=== PATIENT | male | born 1970 | race Caucasian/White ===

== ENCOUNTER 2023-08-14 01:22 | Emergency (ER) | payer OTHER, SELFPAY ==
[2023-08-14] VITALS (18 sets, daily range): BP systolic 115–161; BP diastolic 82–104; PULSE 106–123; RESP 18–22; TEMP 36.2; O2SAT 90–99
--- NOTE | ~2023-08-14 | CT_ITS ---
EXAMINATION: CT brain wo con DATE: 08/14/2023 02:13 INDICATION: Right hemiparesis. Transient ischemic attack. TECHNIQUE: Computed tomography (CT) of the head was performed without intravenous contrast. The mA wa s adjusted according to patient size. Iterative reconstruction technique was employed. The dose-lengt h product was 605.33 mGy-cm. COMPARISON: None FINDINGS: There is no intracranial hemorrhage, acute infarction, or abnormal intracranial mass lesion . The ventricles are normal in size. The orbits are normal. The paranasal sinuses are clear. The mast oid air cells are normal. IMPRESSION: 1. Normal brain. Reviewed, dictated and finalized at location A. RANCE AGENT IMPRESSION: 1. Normal brain.
--- NOTE | 2023-08-14 01:37 | ECG_ITS ---
Measurements Intervals [place] Rate: 112 P: 33 TX: 148 QRS: 53 QRSD: 89 T: 3 QT: 305 QTc: 416 Interpretive Statements SINUS TACHYCARDIA MINIMAL Q WAVES- INFERIOR LEADS BASELINE ARTIFACT- I, II, III, AVR, AVL ABNORMAL ECG NO PREVIOUS ECG AVAILABLE FOR COMPARISON Electronically Signed On 08-14-2023 7:06:48 CELERY CUTTER by Seun Donohue D.O.
[2023-08-14 01:53] LABS: Basophils Absolute Auto 0.03 K/mm3 (0.00-0.10); Basophils Percent Auto 0.3 % (0.0-1.0); Eosinophils Absolute Auto 0.27 K/mm3 (0.02-0.50); Hematocrit 44.9 % (40.0-54.0); Hemoglobin 15.8 g/dL (14.0-18.0); Immature Granulocyte Absolute 0.04 K/mm3 (0.00-0.00); Immature Granulocyte Percent A 0.4 % (0.0-0.0); Lymphocytes Absolute Auto 2.08 K/mm3 (1.10-4.50); Lymphocytes Percent Auto 22.9 % (18.0-42.0); Mean Corpuscular HGB Conc 35.2 g/dL (32.0-36.0); Mean Corpuscular Hemoglobin 30.6 pg (27.0-31.0); Mean Corpuscular Volume 86.8 fL (78.0-102.0); Mean Platelet Volume 11.2 fl (8.7-11.0); Monocytes Absolute Auto 0.64 K/mm3 (0.10-0.90); Neutrophils Percent Auto 66.4 % (50.0-70.0); Platelet Count Result 222 K/mm3 (150-420); Red Blood Count 5.17 M/mm3 (4.70-6.10); Red Cell Distribution Width 11.9 % (11.6-14.4); White Blood Count 9.1 K/mm3 (4.8-10.8)
[2023-08-14] MEDS: ASPIRIN 81 MG CHEWABLE TABLET 324 MG PO (01:54)
--- NOTE | 2023-08-14 02:00 | PC.NURSE ---
asa admin, ekg completed, pt currently using urinal then will go to ct, will start iv and admin iv med when pt returns
--- NOTE | 2023-08-14 02:02 | ED.NEUROSD ---
HPI - Neuro Symptoms/Deficit General Chief Complaint: Extremity Problem,Nontraumatic Stated Complaint: weakness Time Seen by Provider: 08/14/23 01:34 Source: patient Mode of arrival: ambulatory Limitations: no limitations History of Present Illness HPI Narrative: Patient is a 52-year-old male with a significant past medical history that presents today possible TIA symptoms his both seizure symptoms the patient has a in the store hours ago he started the shakiness right side of his body. He did not lose consciousness he did not any of the symptoms he states that he 20 get along well this was shaking and he will also need to do so because of weakness and he fell to the ground. He denied he said when he fell. He was unable to walk for some and continue had weakness and shaking his legs. He has never had a feeling this Pap in the past he has never had any seizures in the past. He has an apparent stroke in the past either. He is a 40 pack-year smoker. He still continues to smoke. Right now the symptoms have resolved however and he does not have weakness on either side and shaking has gone as well. He still very anxious and says that he has to take Ativan 2 mg a day for last 20 years and recently a week ago stopped the Ativan and then took quarter of 1 here and there he states. Onset (ago): hour(s) Time: 21:00 Last Observed Normal: 21:00 Timing confirmed by: other Location: right arm and right leg History of same: Yes Severity: mild Quality: weak and improving Relieving factors: none Exacerbating factors: none Context: sudden onset On Anticoagulants: No Treatments Prior to Arrival: none Related Data Home Medications Medication Instructions Recorded Confirmed lisinopril 10 mg tablet (Zestril) 10 mg PO DAILY 08/14/23 08/14/23 lorazepam 1 mg tablet 1 mg PO BID 08/14/23 08/14/23 Allergies Allergy/AdvReac Type Severity Reaction Status Date / Time No Known Allergies Allergy Verified 08/14/23 19:07 Review of Systems Review of Systems: All systems reviewed & are unremarkable except as noted in HPI and below Constitutional: Constitutional: Reports no additional constitutional complaints Eyes: Eyes: Reports no additional eye complaints ENT: Reports system reviewed and no additional complaints, except as documented Cardiovascular: Cardiovascular: Reports no additional cardiovascular complaints Respiratory: Respiratory: Reports no additional respiratory complaints Gastrointestinal: Gastrointestinal: Reports no additional gastrointestinal complaints Musculoskeletal: Musculoskeletal: Reports as per HPI Integumentary/Breasts: Skin/Breast: Reports as per HPI Neurologic: Reports as per HPI Psychiatric: Psychiatric: Reports anxiety Endocrine: Endocrine: Reports no additional endocrine complaints Hematologic/Lymphatic: Hematologic/Lymphatic: Reports no additional hematologic/lymphatic complaints Allergic/Immunologic: Allergic/Immunologic: Reports no additional allergic/immunologic complaints PMFSH Past Medical History Medical History (Updated 08/17/23 @ 10:16 by Leonid Plata MD) Anxiety Eczema Essential hypertension Psoriasis Surgical History Surgical History (Updated 08/14/23 @ 07:46 by Callie Ruiz DO) No significant past surgical history Family History Family History Other Unknown family medical history Social History Social History (Updated 08/14/23 @ 07:47 by Callie Ruiz DO) Social History: Patient lives at home with his mother and 11-year-old son. He has smoked pack tobacco daily since he was a teenager. He drinks at least a moderate amount of alcohol. He reports smoking methamphetamines since summer 2022. Smoking packs per day: 1 Smoking cigarettes per day: 20.0 Years smoked: 35 Smoking pack-years: 35.00 Smoking status: Current some day smoker Tobacco type: cigarettes Alcohol intake: current Drin
[2023-08-14 02:09] LABS: Appearance Urine Clear (Clear); Bilirubin Urine Negative (Negative); Blood Urine Negative (Negative); Color Urine Light Yellow (Yellow); Glucose Urine UA 3+ (Negative); Ketones Urine Negative (Negative); Leukocyte Esterase Ur Negative LEU/UL (Negative); Nitrate Urine Negative (Negative); Protein Urine Negative (Negative); Specific Grav Ur <= 1.005 (1.010-1.020); Urobilinogen Urine 0.2 mg/dL (0.2-1.0); pH Urine 6.5 (5.0-8.0)
[2023-08-14 02:12] LABS: INR 0.9
[2023-08-14 02:13] LABS: Add Urine Microscopic? YES; Bacteria Urine Trace /hpf; RBC Urine 0-2 /hpf (0-2); WBC Urine 0-3 /hpf (0-3)
[2023-08-14 02:14] LABS: Partial Thromboplastin Time 27.7 SEC (23.90-30.70)
[2023-08-14 02:15] LABS: Alanine Aminotransferase 49 U/L (16-63); Albumin Level 3.4 g/dL (3.4-5.0); Alkaline Phosphatase 166 U/L (46-116); Anion Gap 9 mmol/L (8-16); Aspartate Amino Transferase 17 U/L (15-37); Bilirubin,Total 0.3 mg/dL (0.00-1.00); Blood Urea Nitrogen 17 mg/dL (7-18); Calcium 8.5 mg/dL (8.5-10.1); Carbon Dioxide 27 mmol/L (21-32); Chloride 88 mmol/L (98-108); Estimated CRCL calculation 81 ml/min; Estimated Glomerular Filt Rate > 60; Potassium 4.6 mmol/L (3.5-5.1); Sodium 124 mmol/L (136-145); Total Protein 6.9 g/dL (6.4-8.2)
[2023-08-14 02:15] LABS: Amphetamine Screen Urine Positive (Negative); Barbiturate Screen Urine Negative (Negative); Benzodiazepines Screen Urine Negative (Negative); Cannabinoid Screen Urine Negative (Negative); Cocaine Screen Urine Negative (Negative); Methadone Screen Urine Negative (Negative); Opiate Screen Urine Negative (Negative); Phencyclidine Screen Urine Negative (Negative)
[2023-08-14] MEDS: LORazepam INJ (*CRX) 2 MG/ML VIAL IV PUSH (02:18)
[2023-08-14 02:24] LABS: Osmolality Calculated 298 mOsm/kg (285-295)
[2023-08-14 02:25] LABS: Glucose > 800 mg/dL (70-99); Lactate Dehydrogenase 143 U/L (85-227)
[2023-08-14 02:26] LABS: Ethanol < 3 mg/dL (0-6); Troponin I 8.6 ng/L (0.00-60.4)
[2023-08-14 02:42] LABS: Hemoglobin A1C > 13.7 % (<5.7)
[2023-08-14] MEDS: INSULIN REG 100 UNITS/100 ML 100 UNITS/100 ML BAG 8.5 UNITS IV CONT (02:47)
--- NOTE | 2023-08-14 03:48 | PC.NURSE ---
pt resting with eyes closed, awakens briefly to verbal, denying c/, pt bending r ue periodically, insulin infusing but requiring to be frequently restarted, will recheck blood sugar when initial 8.5 units insulin infused, side rails up x 2, call light within reach, pt in nad, awaiting call back from [facility] with admit bed
[2023-08-14] MEDS: SODIUM CHLORIDE 0.9% IV 1,000 ML 999 ML IV CONT (04:20)
[2023-08-14 04:37] LABS: Glucose Point of Care > 450 mg/dl (65-105)
--- NOTE | 2023-08-14 04:47 | PC.NURSE ---
spoke with Surekha @ ~0400, Dr Plata spoke to admitting @ [facility] @ ~0402
[2023-08-14 05:34] LABS: Glucose Point of Care > 450 mg/dl (65-105)
[2023-08-14 06:32] LABS: Glucose Point of Care 294 mg/dl (65-105)
== END 2023-08-14 05:35 | disposition short-term general hospital (02) ==
PROVIDERS: Emergency Provider Family Medicine; PCP Family Medicine
DX: G45.9 Transient cerebral ischemic attack, unspecified (principal); F41.9 Anxiety disorder, unspecified; I10 Essential (primary) hypertension; F17.210 Nicotine dependence, cigarettes, uncomplicated; F15.90 Other stimulant use, unspecified, uncomplicated; Z79.4 Long term (current) use of insulin; Z79.84 Long term (current) use of oral hypoglycemic drugs
CPT/HCPCS: 36415; 70450; 80053; 80307; 81001; 82948; 83036; 83615; 84484; 85025; 85610; 85730; 93005; 96361; 96365; 96366; 96375; 99285; A9270; J1815; J2060; J7030

== ENCOUNTER 2023-08-14 09:23 | Observation (INO) | payer OTHER, SELFPAY ==
[2023-08-14] VITALS (9 sets, daily range): BP systolic 98–129; BP diastolic 65–95; PULSE 90–113; RESP 15–20; TEMP 36.5–36.8; O2SAT 94–99; BMI 24.5
--- NOTE | 2023-08-14 06:15 | PC.NURSE ---
This patient, Devon Olvera, was admitted to Intensive Care Unit-7. Patient/family oriented to hospital policies and general routines including ID bracelet, bed and alarms, visiting hours, pain management, procedures, bathroom and other care routines, personal items, smoking policy, room service/diet, and visiting hours. Information on how to activate the Rapid Response Team has been discussed. Patient/Family are encouraged to report perceived risks to care and to ask questions if they do not understand what they are told or what they should do.
[2023-08-14] MEDS: SODIUM CHLORIDE 0.9% IV 1,000 ML 999 ML IV CONT ×2 (06:49→08:26)
--- NOTE | 2023-08-14 07:38 | PM.IMHP ---
H&P: HPI History of Present Illness Date/Time: 08/14/23 06:30 Chief Complaint: Muscles shaking Narrative: 52-year-old male with past medical history of methamphetamine abuse, essential hypertension, anxiety and tobacco use who presented to the ER at [facility] via private vehicle due to muscles twitching and shaking. The patient no had reportedly been having some shaking in the muscles of the right side of his body. Patient did not have any loss of consciousness or witnessed seizures. He did in the falling to the ground. He was able to get up and walk afterwards. He reports generally feeling weak. When he arrived to [facility] was found to have glucoses greater than 800. The patient denied history of diabetes. The patient did not initially received fluids but was placed on an insulin drip at the outside facility. Labs were consistent with hyperosmolar hyperglycemic state. The patient does admit to having some polydipsia and polyphagia for the last 3 weeks. He has also been having polyuria. He denies any dysuria. He occasionally has sensation of incomplete bladder emptying. He denies hematuria or changes in bowel habits. He reports that he was having a yeast infection in his mouth. He mentions that he thought he had thrush but I was unable to get more details from him as the patient continued to fall asleep during my evaluation. The patient had received 2 mg of benzodiazepines at the outside hospital. The patient had told the outside ER that he had been taking 2 mg of Ativan a day for 20 years and stopped it 1 week ago. However patient actually has not had Ativan prescribed since May. He states he has been getting Ativan from his aunt and is only been taking it on occasion. The patient's urine drug screen happened also be positive for methamphetamines. The patient does admit to smoking methamphetamines but insists that he only started smoking meth 4 months ago. He also does drink alcohol at least 3 alcoholic beverages sometimes daily but reports he will also not drink for a week or so. Review of Systems Review of Systems: Review of systems limited as the patient was somnolent had to be woke up multiple times during evaluation. [facility] Past Medical History Medical History (Updated 08/14/23 @ 17:43 by Oliver Sevilla MD) Anxiety Eczema Essential hypertension Psoriasis Surgical History Surgical History (Updated 08/14/23 @ 07:46 by Callie Ruiz DO) No significant past surgical history Family History Family History Other Unknown family medical history Social History Social History (Updated 08/14/23 @ 07:47 by Callie Ruiz DO) Social History: Patient lives at home with his mother and 11-year-old son. He has smoked pack tobacco daily since he was a teenager. He drinks at least a moderate amount of alcohol. He reports smoking methamphetamines since summer 2022. Smoking packs per day: 1 Smoking cigarettes per day: 20.0 Years smoked: 35 Smoking pack-years: 35.00 Smoking status: Current some day smoker Tobacco type: cigarettes Alcohol intake: current Drinks per week: 40 Substance use: current Substance use type: methamphetamine Last use: 08/12/23 Spiritual care concerns: No Meds Home Medications and Allergies Home Medications Medication Instructions Recorded Confirmed Type lisinopril 10 mg tablet (Zestril) 10 mg PO DAILY 08/14/23 08/14/23 History lorazepam 1 mg tablet 1 mg PO BID 08/14/23 08/14/23 History Allergies Allergy/AdvReac Type Severity Reaction Status Date / Time No Known Allergies Allergy Verified 08/14/23 19:07 Vital Signs Vital Signs - 24 hr 08/14/23 06:15 Pulse Rate 106 H Respiratory Rate 19 Blood Pressure 129/84 Pulse Oximetry 94 Exam Narrative: Weight 79.7 kg BMI 24.5 Const: Other: Disheveled, well-developed well-nourished HENMT: Other: Norm
[2023-08-14 07:51] LABS: Anion Gap 8 mmol/L (8-16); Blood Urea Nitrogen 12 mg/dL (9-20); Calcium 8.9 mg/dL (8.4-10.2); Carbon Dioxide 24 mmol/L (22-30); Chloride 104 mmol/L (98-107); Estimated CRCL calculation 189 ml/min; Estimated Glomerular Filt Rate > 60; Glucose 284 mg/dL (65-110); Magnesium 1.8 mg/dL (1.6-2.3); Phosphorus 4.1 mg/dL (2.5-4.5); Potassium 3.9 mmol/L (3.4-5.0); Sodium 136 mmol/L (137-145)
[2023-08-14 07:52] LABS: Glucose Point of Care 291 mg/dl (65-105)
--- NOTE | 2023-08-14 08:22 | WPDCNINT ---
Assessment and Plan Assessment and plan (1) Hyperosmolar hyperglycemic state (HHS): Code(s): E11.00 - Type 2 diabetes mellitus with hyperosmolarity without nonketotic hyperglycemic-hyperosmolar coma (NKHHC) Status: Acute Assessment and Plan: Patient presented to the outside hospital with shaking of his right side, weakness. He also complained of polyuria, polyphagia and polydipsia for the last 3 weeks -blood sugars at the outside hospital were > 800 -no anion gap, no metabolic acidosis -diagnosed with hyperosmolar hyperglycemic state -received 2 L of IV fluid bolus upon arrival to the ICU at [facility] as he was not given any IV fluids at the outside hospital -I have asked the bedside RN to give another NS 1000 mL of IV fluid bolus -repeat labs noted, will start Lantus and sliding scale insulin with Accu-Cheks -hemoglobin A1c is >13.7 this admission -start diabetic diet -will have dietitian and paraeducator evaluate the patient (2) Diabetes mellitus, new onset: Code(s): E11.9 - Type 2 diabetes mellitus without complications Status: Acute Assessment and Plan: New onset diabetes, hemoglobin A1c is above -continue treatment as above (3) Acute metabolic encephalopathy: Code(s): G93.41 - Metabolic encephalopathy Status: Acute Assessment and Plan: Acute metabolic encephalopathy likely related to hyperglycemia, also patient received Ativan 2 mg IV x1 at the outside hospital prior to being transferred to the ICU at [facility] -patient does wake up to name, follows simple commands and answers to questions appropriately -will continue to monitor (4) Benzodiazepine dependence: Code(s): F13.20 - Sedative, hypnotic or anxiolytic dependence, uncomplicated Status: Acute Assessment and Plan: Patient with benzodiazepine dependence, according the records patient has been dependent on it for 20 years but stopped 1 week ago. He has not had his Ativan prescribe since May of 2023. He stated that he has been getting Ativan from his aunt and has been taking it occasionally. (5) Oral thrush: Code(s): B37.0 - Candidal stomatitis Status: Acute Assessment and Plan: Patient with oral thrush, could be related to uncontrolled diabetes -will order nystatin swish and swallow (6) Continuous tobacco abuse: Code(s): Z72.0 - Tobacco use Status: Acute Assessment and Plan: Patient with history of tobacco abuse, will university counselor on cessation of smoking, once he is more awake (7) Methamphetamine abuse: Code(s): F15.10 - Other stimulant abuse, uncomplicated Status: Acute Assessment and Plan: Methamphetamine use, counseled on cessation of methamphetamine use once he is more awake Plan DVT prophylaxis: Enoxaparin Stress ulcer prophylaxis: Not indicated Nutrition: Diabetic diet Code Status: Full code Critical Care Time Spent: 46 minutes Due to a high probability of clinically significant, life threatening deterioration, the patient required my highest level of preparedness to intervene emergently and I personally spent this critical care time directly and personally managing the patient. This critical care time included obtaining a history; examining the patient; pulse oximetry; ordering and review of studies; arranging urgent treatment with development of a management plan; evaluation of patient's response to treatment; frequent reassessment; and discussions with other providers. It was exclusive of separately billable procedures and treating other patients and teaching time. Please see Assessment and Plan section and the rest of the note for further information on patient assessment and treatment This dictation may have been done utilizing a voice recognition system. Attempts have been made to correct errors. However, there may be uncorrected grammatical, spelling, and recognitions errors present. [employer] Consult N
[2023-08-14] MEDS: NYSTATIN 100,000 UNITS/ML SUSP 5 ML ORAL.SUSP PO ×4 (08:30→22:05)
[2023-08-14] MEDS: lisinopriL 10 MG TABLET PO (08:31)
[2023-08-14 08:39] LABS: Glucose Point of Care 394 mg/dl (65-105)
[2023-08-14] MEDS: INSULIN GLARGINE (*BKC) 100 UNITS/ML 14 UNITS SUB-Q (08:40)
[2023-08-14] MEDS: ENOXAPARIN 40 MG/0.4 ML SYRINGE SUB-Q (09:38)
[2023-08-14] MEDS: INSULIN ASPART (*BKC) 100 UNITS/ML SUB-Q ×5 (09:38→22:06)
[2023-08-14] MEDS: NICOTINE (*PBKC) 21 MG PATCH 1 PATCH TRANSDERM (09:38)
[2023-08-14 09:45] LABS: Glucose Point of Care 355 mg/dl (65-105)
[2023-08-14 10:52] LABS: Glucose Point of Care 304 mg/dl (65-105)
[2023-08-14] MEDS: INSULIN HUMAN REGULAR (*BKC) 100 UNITS/ML IV PUSH (11:04)
[2023-08-14] MEDS: INSULIN GLARGINE (*BKC) 100 UNITS/ML 6 UNITS SUB-Q (11:04)
[2023-08-14] MEDS: LACTATED RINGERS 1,000 ML 999 ML IV CONT (11:04)
[2023-08-14 12:29] LABS: Glucose Point of Care 351 mg/dl (65-105)
--- NOTE | 2023-08-14 12:56 | PM.IMPN ---
Progress Note: A&P Assessment and Plan (1) Hyperosmolar hyperglycemic state (HHS): Code(s): E11.00 - Type 2 diabetes mellitus with hyperosmolarity without nonketotic hyperglycemic-hyperosmolar coma (NKHHC) Status: Acute Assessment and Plan: Patient presented to the outside hospital with shaking of his right side, weakness. He also complained of polyuria, polyphagia and polydipsia for the last 3 weeks -blood sugars at the outside hospital were > 800 -no anion gap, no metabolic acidosis -diagnosed with hyperosmolar hyperglycemic state -he was fluid resuscitated. -he was started on Lantus and sliding scale insulin with Accu-Cheks -diabetic diet -will have dietitian and early childhood educator aide evaluate the patient (2) Diabetes mellitus, new onset: Code(s): E11.9 - Type 2 diabetes mellitus without complications Status: Acute Assessment and Plan: New onset diabetes. A1c >13.7. As above (3) Acute metabolic encephalopathy: Code(s): G93.41 - Metabolic encephalopathy Status: Acute Assessment and Plan: Acute metabolic encephalopathy related to the hyperosmolar hyperglycemic states and he also received Ativan 2 mg IV x1 at the outside hospital -patient awake and alert now. -resolved (4) Benzodiazepine dependence: Code(s): F13.20 - Sedative, hypnotic or anxiolytic dependence, uncomplicated Status: Acute Assessment and Plan: Patient with hx of benzodiazepine dependence for about 20 years. He stopped 1 week ago. -he has been out of his Ativan since May of 2023. -he has been using his aunt's Xanax to get through until he can see his doctor. -UDS however was negative for benzos. -mental status better. will order prn Ativan (5) Oral thrush: Code(s): B37.0 - Candidal stomatitis Status: Acute Assessment and Plan: Patient with oral thrush felt related to uncontrolled diabetes -he denies risk factors for HIV and declines testing -continue nystatin swish and swallow (6) Continuous tobacco abuse: Code(s): Z72.0 - Tobacco use Status: Acute Assessment and Plan: Patient was counseled on benefits of smoking cessation (7) Methamphetamine abuse: Code(s): F15.10 - Other stimulant abuse, uncomplicated Status: Acute Assessment and Plan: UDS was positive for Methamphetamine which he admits to. Patient was counseled on benefits of abstaining from meth use (8) Essential hypertension: Code(s): I10 - Essential (primary) hypertension Status: Acute Assessment and Plan: Patient's blood pressure was reviewed on 08/14 Blood pressure remains well controlled. Will continue current medications. Plan DVT prophylaxis: Enoxaparin Stress ulcer prophylaxis: Not indicated Nutrition: Diabetic diet Code Status: Full code Subjective Date/time seen: 08/14/23 12:56 Interval history: 52yo male with HTN, meth abuse, anxiety and tobacco abuse transferred from outside hospital for seizure like activity. He is feeling better. He did not lose consciousness when he had the shaking episode but just his legs wee shaking. No family hx of DM. He feels tired. Lives with his mom Exam Narrative: AF 97.7 122/84 104 18 96% ra Gen - NARD Chest - CTA bilaterally, nml RR CV - RRR S1/S2 Abd - Soft, NT/ND, Positive BS Ext - No pedal edema Neuro - Alert and oriented x4. Nonfocal exam. Psych - Nml mood and affect. disheveled appearing Skin - Warm and dry Objective Data Vital Signs Vital Signs: Vital Signs - 24 hr 08/14/23 06:15 08/14/23 08:00 08/14/23 10:00 Temperature 97.7 F Pulse Rate 106 H 90 104 H Respiratory Rate 19 15 18 Blood Pressure 129/84 128/95 H 122/84 Pulse Oximetry 94 99 96 Intake/Output Intake/Output: Intake & Output 08/11/23 08/12/23 08/13/23 08/14/23 23:59 23:59 23:59 23:59 Intake Total 236 Balance 236 Meds/Results
[2023-08-14 13:39] LABS: Glucose Point of Care 257 mg/dl (65-105)
[2023-08-14 14:37] LABS: Anion Gap 7 mmol/L (8-16); Blood Urea Nitrogen 10 mg/dL (9-20); Calcium 8.5 mg/dL (8.4-10.2); Carbon Dioxide 23 mmol/L (22-30); Chloride 106 mmol/L (98-107); Estimated CRCL calculation 189 ml/min; Estimated Glomerular Filt Rate > 60; Glucose 216 mg/dL (65-110); Potassium 3.9 mmol/L (3.4-5.0); Sodium 136 mmol/L (137-145)
[2023-08-14 15:30] LABS: Glucose Point of Care 179 mg/dl (65-105)
[2023-08-14 18:40] LABS: Glucose Point of Care 255 mg/dl (65-105)
[2023-08-14 20:53] LABS: Glucose Point of Care 214 mg/dl (65-105)
[2023-08-15] VITALS (7 sets, daily range): BP systolic 111–128; BP diastolic 73–90; PULSE 86–100; RESP 15–20; TEMP 36.5–37.3; O2SAT 95–97
[2023-08-15 04:27] LABS: Basophils Percent Auto 0.3 % (0.2-1.2); Eosinophils Absolute Auto 0.3 K/mm3 (0-0.3); Eosinophils Percent Auto 2.8 % (0-4.4); Hematocrit 44.3 % (42.0-52.0); Hemoglobin 14.7 g/dL (14.0-18.0); Immature Granulocyte Absolute 0.07 K/mm3 (0.00-0.031); Immature Granulocyte Percent A 0.6 % (0-0.5); Lymphocytes Absolute Auto 3.31 K/mm3 (0.9-3.2); Lymphocytes Percent Auto 28.6 % (18.3-44.2); Mean Corpuscular HGB Conc 33.2 g/dl (32-36); Mean Corpuscular Hemoglobin 29.5 pg (26-34); Mean Corpuscular Volume 88.8 fl (80-100); Mean Platelet Volume 10.5 fl (7.4-10.4); Monocytes Absolute Auto 0.7 K/mm3 (0.1-0.6); Monocytes Percent Auto 6.2 % (2.6-8.5); Neutrophils Absolute Auto 7.1 K/mm3 (1.3-6.7); Neutrophils Percent Auto 61.5 % (45.5-73.1); Platelet Count Result 233 k/mm3 (150-375); Red Blood Count 4.99 M/mm3 (4.6-6.20); Red Cell Distribution Width 12.7 % (11.5-14.5); White Blood Count 11.6 K/mm3 (4.5-10.0)
[2023-08-15 04:48] LABS: Alanine Aminotransferase 35 U/L (6-50); Albumin Level 3.4 g/dL (3.5-5.1); Alkaline Phosphatase 95 U/L (38-126); Anion Gap 8 mmol/L (8-16); Aspartate Amino Transferase 29 U/L (17-59); Bilirubin,Total 0.6 mg/dL (0.2-1.3); Blood Urea Nitrogen 11 mg/dL (9-20); Calcium 8.2 mg/dL (8.4-10.2); Carbon Dioxide 24 mmol/L (22-30); Chloride 104 mmol/L (98-107); Estimated CRCL calculation 155 ml/min; Estimated Glomerular Filt Rate > 60; Glucose 201 mg/dL (65-110); Magnesium 1.8 mg/dL (1.6-2.3); Phosphorus 3.1 mg/dL (2.5-4.5); Potassium 3.9 mmol/L (3.4-5.0); Sodium 136 mmol/L (137-145)
[2023-08-15] MEDS: INSULIN ASPART (*BKC) 100 UNITS/ML SUB-Q ×4 (08:15→20:14)
[2023-08-15] MEDS: NYSTATIN 100,000 UNITS/ML SUSP 5 ML ORAL.SUSP PO ×4 (08:16→20:14)
[2023-08-15] MEDS: LORazepam (*CRX) 0.5 MG TABLET PO (08:16)
[2023-08-15] MEDS: INSULIN GLARGINE (*BKC) 100 UNITS/ML 25 UNITS SUB-Q (08:16)
[2023-08-15] MEDS: lisinopriL 10 MG TABLET PO (08:16)
[2023-08-15] MEDS: ENOXAPARIN 40 MG/0.4 ML SYRINGE SUB-Q (08:16)
[2023-08-15 08:31] LABS: Glucose Point of Care 280 mg/dl (65-105)
[2023-08-15] MEDS: metFORMIN HCL 500 MG TABLET PO ×2 (08:35→17:05)
[2023-08-15] MEDS: NICOTINE (*PBKC) 21 MG PATCH 1 PATCH TRANSDERM (08:35)
--- NOTE | 2023-08-15 09:00 | WPDINTPN ---
Progress Note: A&P Assessment and Plan (1) Hyperosmolar hyperglycemic state (HHS): Code(s): E11.00 - Type 2 diabetes mellitus with hyperosmolarity without nonketotic hyperglycemic-hyperosmolar coma (NKHHC) Status: Acute Assessment and Plan: Patient presented to the outside hospital with shaking of his right side, weakness. He also complained of polyuria, polyphagia and polydipsia for the last 3 weeks -blood sugars at the outside hospital were > 800 -no anion gap, no metabolic acidosis -diagnosed with hyperosmolar hyperglycemic state -patient has received adequate amount of IV fluids since admission -patient did not require insulin infusion but was started on Lantus and sliding scale insulin along with Accu-Cheks -hemoglobin A1c is >13.7 this admission -tolerating diabetic diet - dietitian and unit educator have been consulted (2) Diabetes mellitus, new onset: Code(s): E11.9 - Type 2 diabetes mellitus without complications Status: Acute Assessment and Plan: New onset diabetes, hemoglobin A1c is above -continue treatment as above (3) Acute metabolic encephalopathy: Code(s): G93.41 - Metabolic encephalopathy Status: Acute Assessment and Plan: RESOLVED Acute metabolic encephalopathy likely related to hyperglycemia, also patient received Ativan 2 mg IV x1 at the outside hospital prior to being transferred to the ICU at [facility] -patient is awake, alert and oriented (4) Benzodiazepine dependence: Code(s): F13.20 - Sedative, hypnotic or anxiolytic dependence, uncomplicated Status: Acute Assessment and Plan: Patient with benzodiazepine dependence, according the records patient has been dependent on it for 20 years but stopped 1 week ago. He has not had his Ativan prescribe since May of 2023. He stated that he has been getting Ativan from his aunt and has been taking it occasionally. (5) Oral thrush: Code(s): B37.0 - Candidal stomatitis Status: Acute Assessment and Plan: Patient with oral thrush, could be related to uncontrolled diabetes -will order nystatin swish and swallow (6) Continuous tobacco abuse: Code(s): Z72.0 - Tobacco use Status: Acute Assessment and Plan: Patient with history of tobacco abuse, of evp general counsel patient on cessation of smoking. (7) Methamphetamine abuse: Code(s): F15.10 - Other stimulant abuse, uncomplicated Status: Acute Assessment and Plan: Methamphetamine use, counseled on cessation of methamphetamine use Plan DVT prophylaxis: Enoxaparin Stress ulcer prophylaxis: Not indicated Nutrition: Diabetic diet Code Status: Full code Critical Care Time Spent: 31 minutes Patient may transfer out of the ICU Due to a high probability of clinically significant, life threatening deterioration, the patient required my highest level of preparedness to intervene emergently and I personally spent this critical care time directly and personally managing the patient. This critical care time included obtaining a history; examining the patient; pulse oximetry; ordering and review of studies; arranging urgent treatment with development of a management plan; evaluation of patient's response to treatment; frequent reassessment; and discussions with other providers. It was exclusive of separately billable procedures and treating other patients and teaching time. Please see Assessment and Plan section and the rest of the note for further information on patient assessment and treatment This dictation may have been done utilizing a voice recognition system. Attempts have been made to correct errors. However, there may be uncorrected grammatical, spelling, and recognitions errors present. Subjective Date/time seen: 08/15/23 09:00 Interval history: 52yo male with HTN, meth abuse, anxiety and tobacco abuse transferred from outside hospital for seizure like activity/tremors, weakness a
--- NOTE | 2023-08-15 11:29 | PM.IMPN ---
Progress Note: A&P Assessment and Plan (1) Hyperosmolar hyperglycemic state (HHS): Code(s): E11.00 - Type 2 diabetes mellitus with hyperosmolarity without nonketotic hyperglycemic-hyperosmolar coma (NKHHC) Status: Acute Assessment and Plan: Patient presented to the outside hospital with shaking of his right side and weakness. He also complained of polyuria, polyphagia and polydipsia for the last 3 weeks -blood sugars at the outside hospital were > 800 -no anion gap, no metabolic acidosis -diagnosed with hyperosmolar hyperglycemic state -he was fluid resuscitated. -he was started on Lantus and sliding scale insulin with Accu-Cheks -diabetic diet -will have dietitian and certified lactation educator evaluate the patient -add metformin (2) Diabetes mellitus, new onset: Code(s): E11.9 - Type 2 diabetes mellitus without complications Status: Acute Assessment and Plan: New onset diabetes. A1c >13.7. As above (3) Acute metabolic encephalopathy: Code(s): G93.41 - Metabolic encephalopathy Status: Acute Assessment and Plan: Acute metabolic encephalopathy related to the hyperosmolar hyperglycemic states and he also received Ativan 2 mg IV x1 at the outside hospital -patient awake and alert now. -resolved (4) Benzodiazepine dependence: Code(s): F13.20 - Sedative, hypnotic or anxiolytic dependence, uncomplicated Status: Acute Assessment and Plan: Patient with hx of benzodiazepine dependence for about 20 years. He stopped 1 week ago. -he has been out of his Ativan since May of 2023 but has been using his aunt's Xanax to get through until he can see his doctor. -UDS however was negative for benzos. -mental status better. will order prn Ativan (5) Oral thrush: Code(s): B37.0 - Candidal stomatitis Status: Acute Assessment and Plan: Patient with oral thrush felt related to uncontrolled diabetes -he denies risk factors for HIV and declines testing -continue nystatin swish and swallow (6) Continuous tobacco abuse: Code(s): Z72.0 - Tobacco use Status: Acute Assessment and Plan: Patient was counseled on benefits of smoking cessation (7) Methamphetamine abuse: Code(s): F15.10 - Other stimulant abuse, uncomplicated Status: Acute Assessment and Plan: UDS was positive for Methamphetamine which he admits to. Patient was counseled on benefits of abstaining from meth use (8) Essential hypertension: Code(s): I10 - Essential (primary) hypertension Status: Acute Assessment and Plan: Patient's blood pressure was reviewed on 08/15 Blood pressure remains well controlled. Will continue current medications. Plan DVT prophylaxis: Enoxaparin Stress ulcer prophylaxis: Not indicated Nutrition: Diabetic diet Code Status: Full code Subjective Date/time seen: 08/15/23 11:29 Interval history: 52yo male with HTN, meth abuse, anxiety and tobacco abuse transferred from outside hospital for seizure like activity. No issues overnight. He slept well. He does feel anxious this morning. Exam Narrative: AF 98.0 128/90 86 15 97% ra Gen - NARD Chest - CTA bilaterally, nml RR CV - RRR S1/S2. Telemetry showing no significant dysrhythmias Abd - Soft, NT/ND, Positive BS Ext - No pedal edema Neuro - Alert and oriented. Nonfocal exam. Psych - Nml mood and affect. disheveled appearing Skin - Warm and dry. Mild abdominal rash noted Objective Data Vital Signs Vital Signs: Vital Signs - 24 hr 08/14/23 12:00 08/14/23 14:00 08/14/23 12:00 Temperature 97.8 F Pulse Rate 103 H 102 H 103 H Respiratory Rate 19 Blood Pressure 113/76 Pulse Oximetry 98 Oxygen Delivery 08/14/23 14:00 08/14/23 12:00 08/14/23 16:00 Temperature 97.8 F Pulse Rate 102 H 112 H Respiratory Rate 17 20 Blood Pressure 120/76 123/76 Pulse Oximetry 99 96 Oxyge
[2023-08-15 12:05] LABS: Glucose Point of Care 203 mg/dl (65-105)
--- NOTE | 2023-08-15 12:07 | ADMGEN ---
This patient, Devon Olvera, was admitted to 3 Medical Room 340-01 from ICU - 7 Report taken from JARED Holman prior to transport. Patient/family oriented to hospital policies and general routines including ID bracelet, bed and alarms, visiting hours, pain management, procedures, bathroom and other care routines, personal items, smoking policy, room service/diet, and visiting hours. Information on how to activate the Rapid Response Team has been discussed. Patient/Family are encouraged to report perceived risks to care and to ask questions if they do not understand what they are told or what they should do.
[2023-08-15 17:25] LABS: Glucose Point of Care 279 mg/dl (65-105)
[2023-08-15 20:21] LABS: Glucose Point of Care 225 mg/dl (65-105)
[2023-08-16 05:45] VITALS: BP 111/72; PULSE 107; RESP 20; TEMP 36.8; O2SAT 96
[2023-08-16 08:00] VITALS: O2SAT 96
[2023-08-16 08:26] LABS: Glucose Point of Care 174 mg/dl (65-105)
[2023-08-16 09:00] VITALS: BMI 24.5
[2023-08-16] MEDS: metFORMIN HCL 500 MG TABLET PO (09:07)
[2023-08-16] MEDS: lisinopriL 10 MG TABLET PO (09:07)
[2023-08-16] MEDS: NYSTATIN 100,000 UNITS/ML SUSP 5 ML ORAL.SUSP PO (09:07)
[2023-08-16] MEDS: INSULIN GLARGINE (*BKC) 100 UNITS/ML 25 UNITS SUB-Q (09:08)
[2023-08-16] MEDS: ENOXAPARIN 40 MG/0.4 ML SYRINGE SUB-Q (09:08)
[2023-08-16] MEDS: LORazepam (*CRX) 0.5 MG TABLET PO (09:12)
--- NOTE | 2023-08-16 11:46 | PM.DS ---
DS: Admitting Diagnosis Discharge Date 08/16/23 Admitting Diagnosis Muscle shaking DS: Discharge Diagnosis Discharge Diagnosis (1) Hyperosmolar hyperglycemic state (HHS): Code(s): E11.00 - Type 2 diabetes mellitus with hyperosmolarity without nonketotic hyperglycemic-hyperosmolar coma (NKHHC) Status: Acute (2) Diabetes mellitus, new onset: Code(s): E11.9 - Type 2 diabetes mellitus without complications Status: Acute (3) Acute metabolic encephalopathy: Code(s): G93.41 - Metabolic encephalopathy Status: Acute (4) Benzodiazepine dependence: Code(s): F13.20 - Sedative, hypnotic or anxiolytic dependence, uncomplicated Status: Acute (5) Oral thrush: Code(s): B37.0 - Candidal stomatitis Status: Acute (6) Continuous tobacco abuse: Code(s): Z72.0 - Tobacco use Status: Acute (7) Methamphetamine abuse: Code(s): F15.10 - Other stimulant abuse, uncomplicated Status: Acute (8) Essential hypertension: Code(s): I10 - Essential (primary) hypertension Status: Acute DS: Summary Hospital Course Reason for hospitalization: 52yo male with HTN, meth abuse, anxiety and tobacco abuse transferred from outside hospital for shaking like activity. Please see H&P for details Hospital Course: Patient presented to the outside hospital with shaking of his right side and weakness.? He also complained of polyuria, polyphagia and polydipsia for the last 3 weeks. His blood sugars at the outside hospital was > 800. A1c >13.7. No anion gap or metabolic acidosis consistent with hyperosmolar hyperglycemic state. He had acute metabolic encephalopathy related to the hyperosmolar hyperglycemic state. He was fluid resuscitated and started on Lantus and sliding scale insulin with Accu-Cheks. His glucose became better controlled. Dietitian and multimedia educational specialist evaluated the patient. Metformin added. Patient with hx of benzodiazepine dependence for about 20 years. He stopped 1 week ago. He has been out of his Ativan since May of 2023 but has been using his aunt's Xanax to get through until he can see his doctor. UDS however was negative for benzos but positive for methamphetamines which he admits to. Patient was counseled on benefits of smoking cessation and from abstaining from meth use. He had clinical improvement and was able to be discharged home on 08/16/23. Status at Discharge Cognitive/behavioral status at discharge: stable Time Spent with Patient Time attestation: Total time spent providing and/or coordinating discharge services: 35 minutes Time spent: Greater than 30 minutes Exam Narrative: AF 98.2 111/72 107 20 96% ra Gen - NARD Chest - CTA bilaterally, nml RR CV - RRR S1/S2 Abd - Soft, NT/ND, Positive BS Ext - No pedal edema Psych - Nml mood and affect Skin - Warm and dry DS: Data Data Completed and Pending Labs on day of discharge: Labs from last 24 hours 08/16/23 08/15/23 08/15/23 08:17 19:51 17:06 POC Capillary Glucose 174 H 225 H 279 H 08/15/23 11:46 POC Capillary Glucose 203 H Discharge Plan Discharge Attending physician on discharge: Oliver Sevilla Consulting providers: Mike Martinez Discharging Clinician: Oliver Sevilla Anticipated Discharge Date/Time: 08/16/23 11:53 Patient Disposition: Home, Self-Care Activity: as tolerated Diet: diabetic Discharge Instructions: Please check glucose before meals and before bed. Record and bring into your doctor for review. - Call your doctor if glucose greater than 300 or less than 70. - Take your insulin before bed. DO NOT take your insulin shot tonight (08/16) but start tomorrow night (08/17). Avoid all products containing tobacco or nicotine Stop using methamphetamine. Take precautions to avoid falls. Rise slowly from a lying or sitting position. Pause before standing or walking. Contact your
== END 2023-08-16 12:20 | disposition home or self-care (01) ==
LOC: ANHICU 19:09 → ANH3MED 08-16 11:55 → ANHICU 08-17 11:23
PROVIDERS: Internal Medicine; Admitting Provider Internal Medicine; PCP Family Medicine; Visit Provider Internal Medicine
DX: E11.00 Type 2 diabetes mellitus with hyperosmolarity without nonketotic hyperglycemic-hyperosmolar coma (NKHHC) (principal); G93.41 Metabolic encephalopathy; B37.0 Candidal stomatitis; I10 Essential (primary) hypertension; F41.9 Anxiety disorder, unspecified; F17.210 Nicotine dependence, cigarettes, uncomplicated; F15.10 Other stimulant abuse, uncomplicated; F10.90 Alcohol use, unspecified, uncomplicated
CPT/HCPCS: 36415; 80048; 80053; 82948; 83735; 84100; 85025; 96361; 96372; 96374; A9270; G0378; G0379; J1650; J1815; J7030; J7120

== ENCOUNTER 2024-04-02 20:09 | Emergency (ER) | payer OTHER, SELFPAY ==
--- NOTE | ~2024-04-02 | XR_ITS ---
EXAMINATION: XR knee RT 3V DATE: 04/02/2024 20:47 INDICATION: Right knee pain. TECHNIQUE: 3 views of right knee were obtained. COMPARISON: None. FINDINGS: Bone alignment is normal. No fracture. There is mild tricompartmental osteoarthritis. No kn ee joint effusion. There is anterior knee soft tissue swelling. IMPRESSION: 1. Mild right knee osteoarthritis. Reviewed, dictated and finalized at location E.
--- NOTE | ~2024-04-02 | XR_ITS ---
EXAMINATION: XR ankle RT min 3V DATE: 04/02/2024 20:48 INDICATION: Right ankle pain. TECHNIQUE: 4 views of right ankle were obtained. COMPARISON: None. FINDINGS: Bone alignment is normal. No fracture. There is mild ankle joint osteoarthritis. There is a n enthesophyte at posterior aspect of calcaneal tuberosity. IMPRESSION: 1. Mild ankle joint osteoarthritis. Reviewed, dictated and finalized at location E.
--- NOTE | ~2024-04-02 | CT_ITS ---
EXAMINATION: CT brain wo con DATE: 04/02/2024 20:30 INDICATION: Head injury. Headache. TECHNIQUE: Computed tomography (CT) of the head was performed without intravenous contrast. The mA wa s adjusted according to patient size. Iterative reconstruction technique was employed. The dose-lengt h product was 605.33 mGy-cm. COMPARISON: Head CT 08/14/2023 FINDINGS: There is no intracranial hemorrhage, acute infarction, or abnormal intracranial mass lesion . The ventricles are normal in size. There is mild mucosal thickening in the paranasal sinuses. The o rbits are normal. The mastoid air cells are normal. IMPRESSION: 1. Normal brain. Reviewed, dictated and finalized at location E. IMPRESSION: 1. Normal brain.
--- NOTE | ~2024-04-02 | XR_ITS ---
EXAMINATION: XR tibia fibula RT 2V DATE: 04/02/2024 20:46 INDICATION: Anterior right lower leg pain. TECHNIQUE: 2 views of right tibia and fibula on 3 radiographs were obtained. COMPARISON: None. FINDINGS: Bone alignment is normal. No fracture. There is mild right knee osteoarthritis. No knee purvi nt effusion. IMPRESSION: 1. Mild right knee osteoarthritis. Reviewed, dictated and finalized at location E.
[2024-04-02 20:12] VITALS: BP 140/95; PULSE 99; RESP 18; TEMP 37.1; O2SAT 98
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
[2024-04-02] MEDS: HYDROcodone/acetaminophen (*CRX) 5-325 MG TABLET 1 TAB PO (20:59)
[2024-04-02 21:21] VITALS: BP 140/67; PULSE 90; RESP 18; TEMP 36.8; O2SAT 97
== END 2024-04-02 21:21 | disposition home or self-care (01) ==
PROVIDERS: Emergency Provider Emergency Medicine; PCP Family Medicine
DX: S80.11XA Contusion of right lower leg, initial encounter (principal); S09.8XXA Other specified injuries of head, initial encounter; F17.210 Nicotine dependence, cigarettes, uncomplicated; Z79.4 Long term (current) use of insulin; W22.8XXA Striking against or struck by other objects, initial encounter; Y92.009 Unspecified place in unspecified non-institutional (private) residence as the place of occurrence of the external cause
CPT/HCPCS: 12001; 70450; 73562; 73590; 73610; 99284; A9270

== ENCOUNTER 2025-02-15 16:42 | Emergency (ER) | payer OTHER, SELFPAY ==
[2025-02-15] VITALS (14 sets, daily range): BP systolic 132–176; BP diastolic 80–103; PULSE 96–115; RESP 15–20; TEMP 36.6; O2SAT 92–97
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
--- NOTE | 2025-02-15 16:44 | ECG_ITS ---
Test Date: 2025-02-15 17:30:26 Measurements Intervals [place] Rate: 93 P: 60 TX: 151 QRS: 72 QRSD: 102 T: 9 QT: 325 QTc: 404 Interpretive Statements SINUS RHYTHM WITH MARKED SINUS ARRHYTHMIA PROBABLE INFERIOR MYOCARDIAL INFARCTION , PROBABLY OLD [35 ms Q WAVE IN II/aVF] ABNORMAL ECG No previous ECG available for comparison Electronically Signed On 02-16-2025 10:00:43 CDT by Tony Muro M.D.
[2025-02-15 17:14] LABS: Basophils Absolute Auto 0.03 K/mm3 (0.00-0.10); Basophils Percent Auto 0.2 % (0.0-1.0); Eosinophils Absolute Auto 0.23 K/mm3 (0.02-0.50); Eosinophils Percent Auto 1.7 % (1.0-6.0); Hematocrit 51.6 % (40.0-54.0); Immature Granulocyte Percent A 0.7 % (0.0-0.0); Lymphocytes Absolute Auto 2.29 K/mm3 (1.10-4.50); Mean Corpuscular HGB Conc 32.9 g/dL (32-36); Mean Corpuscular Hemoglobin 28.4 pg (27.0-31.0); Mean Corpuscular Volume 86.3 fL (78.0-102.0); Monocytes Absolute Auto 0.94 K/mm3 (0.10-0.90); Neutrophils Absolute Auto 9.87 K/mm3 (1.70-7.20); Neutrophils Percent Auto 73.4 % (50.0-70.0); Platelet Count Result 268 K/mm3 (150-420); Red Blood Count 5.98 M/mm3 (4.70-6.10); Red Cell Distribution Width 13.3 % (11.6-14.4); White Blood Count 13.5 K/mm3 (4.8-10.8)
[2025-02-15 17:25] LABS: Alanine Aminotransferase 44 U/L (6-50); Albumin Level 4.5 g/dL (3.5-5.1); Alkaline Phosphatase 75 U/L (38-126); Anion Gap 9 mmol/L (4-12); Aspartate Amino Transferase 38 U/L (17-59); Bilirubin,Total 0.7 mg/dL (0.2-1.3); Blood Urea Nitrogen 17 mg/dL (9-20); Calcium 8.9 mg/dL (8.4-10.2); Carbon Dioxide 23 mmol/L (22-30); Chloride 109 mmol/L (98-107); Creatine Kinase 142 U/L (55-170); Estimated CRCL calculation 88 ml/min; Estimated Glomerular Filt Rate > 60; Glucose 107 mg/dL (65-110); Osmolality Calculated 293 mOsm/kg (285-295); Potassium 4.1 mmol/L (3.4-5.0); Sodium 141 mmol/L (137-145); Total Protein 7.3 g/dL (6.3-8.2)
[2025-02-15] MEDS: TETANUS,DIPHTHERIA,AC PERTUSSIS ADULT 0.5 ML (ADACEL) IM (17:39)
[2025-02-15] MEDS: SODIUM CHLORIDE 0.9% IV 1,000 ML 999 ML IV CONT (17:39)
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
== END 2025-02-15 18:34 | disposition home or self-care (01) ==
PROVIDERS: Emergency Provider Emergency Medicine; PCP Family Medicine
DX: S16.1XXA Strain of muscle, fascia and tendon at neck level, initial encounter (principal); S50.311A Abrasion of right elbow, initial encounter; S80.212A Abrasion, left knee, initial encounter; I10 Essential (primary) hypertension; F17.210 Nicotine dependence, cigarettes, uncomplicated; Z79.4 Long term (current) use of insulin; Z23 Encounter for immunization; V59.40XA Driver of pick-up truck or van injured in collision with unspecified motor vehicles in traffic accident, initial encounter
CPT/HCPCS: 36415; 70450; 71250; 72125; 72128; 72131; 74176; 80053; 82550; 85025; 90471; 90715; 93005; 96360; 99284; J7030